=== PATIENT | female | born 1945 | race Caucasian/White ===

== ENCOUNTER 2018-06-08 16:30 | Emergency (ER) | payer OTHER ==
[~2018-06-08] VITALS: Ht 162.6 cm; Wt 77.1 kg
[2018-06-08] MEDS ORDERED: LISINOPRIL-HCT1 EACH PO (16:45)
[2018-06-08] MEDS ORDERED: BENTYL 10 MG CA10 M1 PO (16:45)
[2018-06-08] MEDS ORDERED: CARISOPRODOL 3350 MG PO (16:45)
[2018-06-08] MEDS ORDERED: NORVASC5 M1 PO (16:46)
[2018-06-08] MEDS ORDERED: PREMPHASE 0.621 EAC1 PO (16:46)
[2018-06-08] MEDS ORDERED: CIPRO500 MG PO (16:47)
[2018-06-08] MEDS ORDERED: NORCO 5-325 TA1 EACH PO (17:01)
[2018-06-08] MEDS ORDERED: VALTREX1000 MG PO (17:01)
[2018-06-08 17:11] VITALS: BP 148/56
== END 2018-06-08 17:13 | disposition home or self-care (01) ==
LOC: M.ERS 16:30
DX: B02.9 Zoster without complications (principal); I10 Essential (primary) hypertension; M79.7 Fibromyalgia; K58.9 Irritable bowel syndrome, unspecified; G43.909 Migraine, unspecified, not intractable, without status migrainosus; M19.90 Unspecified osteoarthritis, unspecified site; Z88.2 Allergy status to sulfonamides; Z88.5 Allergy status to narcotic agent; Z90.49 Acquired absence of other specified parts of digestive tract; Z90.710 Acquired absence of both cervix and uterus